=== PATIENT | female | born 1990 ===

== ENCOUNTER 2018-06-07 14:23 | Emergency (ER) | payer SELFPAY ==
[2018-06-07 14:38] VITALS: TEMP 98.3
[2018-06-07] MEDS ORDERED: Sodium Chloride 0.9% 1,000 ML IV STA (15:37)
[2018-06-07 15:44] LABS: SQUAMOUS EPITHIAL 5 /hpf (0-5); URINE BACTERIA RARE (<OCC); URINE BILIRUBIN NEGATIVE (NEGATIVE); URINE BLOOD NEGATIVE (NEGATIVE); URINE CLARITY SLIGHTY-CLOUDY (Clear); URINE COLOR YELLOW (YELLOW); URINE GLUCOSE (UA) NEG (NEGATIVE); URINE LEUKOCYTE ESTERASE NEG Leu/uL (Negative); URINE PROTEIN NEGATIVE (NEGATIVE); URINE UROBILINOGEN 0.2-1.0 mg/dL (0.2-1.0)
--- NOTE | 2018-06-07 15:44 | ED PDOC ---
HPI: General Adult Time Seen by Provider: 06/07/18 15:43 Chief Complaint (Nursing): Female Genitourinary Chief Complaint (Provider): vomiting/nausea History Per: Patient (28 y/o female concerned for here with N/V 2 weeks associated today with mild sharp intermittent lower abdominal pain. Notes mild dysuria as well. Denies any fevers/chills.) Past Medical History Reviewed: Historical Data, Nursing Documentation, Vital Signs Vital Signs: Last Vital Signs Temp 98.3 F 06/07/18 14:36 Pulse 107 H 06/07/18 14:36 Resp 20 06/07/18 14:36 BP 107/80 06/07/18 14:36 Pulse Ox 99 06/07/18 14:36 - Family History Family History: States: Unknown Family Hx - Immunization History Hx Tetanus Toxoid Vaccination: No Hx Influenza Vaccination: No Hx Pneumococcal Vaccination: No - Home Medications Home Medications: Ambulatory Orders Medication Instructions Recorded Ondansetron [Zofran Odt] 4 mg PO Q8 PRN #10 odt 11/08/16 Pantoprazole [Protonix EC Tab] 20 mg PO DAILY #30 ect 11/08/16 Ondansetron [Ondansetron Odt] 4 mg PO Q8 PRN #10 tab.rapdis 06/07/18 Multivit/Folic Acid/I 1 tab PO DAILY #30 tab 06/07/18 [ Plus] - Allergies Allergies/Adverse Reactions: Allergies Allergy/AdvReac Type Severity Reaction Status Date / Time No Known Allergies Allergy Verified 06/07/18 14:31 Review of Systems ROS Statement: Except As Marked, All Systems Reviewed And Found Negative Physical Exam - Reviewed Nursing Documentation Reviewed: Yes Vital Signs Reviewed: Yes - Physical Exam Appears: Positive for: Well, Non-toxic, No Acute Distress Head Exam: Positive for: ATRAUMATIC, NORMAL INSPECTION, NORMOCEPHALIC Skin: Positive for: Normal Color, Warm, DRY Eye Exam: Positive for: EOMI, Normal appearance, PERRL ENT: Positive for: Normal ENT Inspection Neck: Positive for: Normal, Painless ROM Cardiovascular/Chest: Positive for: Regular Rate, Rhythm Respiratory: Positive for: CNT, Normal Breath Sounds Gastrointestinal/Abdominal: Positive for: Normal Exam, Soft Back: Positive for: Normal Inspection Extremity: Positive for: Normal ROM Neurological/Psych: Positive for: Awake, Alert, Normal Tone - Laboratory Results Result Diagrams: 06/07/18 16:00 06/07/18 16:00 - ECG O2 Sat by Pulse Oximetry: 99 Medical Decision Making Medical Decision Makin:59 Transvaginal US FINDINGS: UTERUS: Single Live intrauterine gestation. CRL measures 0.9 cm equivalent to 6 weeks and 6 days of gestational age. Gestational sac diameter measures 2.1 cm equivalent to 6 weeks and 4 days of gestational age. age (Ultrasound estimated): 6 weeks and 5 days Date of delivery (Ultrasound estimated) : 01/26/2019 Heart rate: 133 bpm. Jayda-gestational hemorrhage: None. Uterus measures 9.1 x 4.5 x 5.7 cm. No mass CERVIX: Long and closed. No cervical abnormality seen. RIGHT OVARY: Measures 3.5 x 1.8 x 1.8 cm. No mass. Normal flow. LEFT OVARY: Measures 3.4 x 2.1 x 2.8 cm. No mass. Normal flow. There is a 2.1 x 1.7 x 1.3 cm corpus luteum cyst. FREE FLUID: There is trace free fluid in the cul de sac of uncertain etiology and clinical significance. OTHER FINDINGS: None. IMPRESSION: Single live intrauterine gestation with mean gestational age of 6 weeks and 5 days. The estimated date of delivery by ultrasound is 01/26/2019. There is a discrepancy with the clinical dates. Clinical follow-up is advised. Small amount of free fluid in the cul de sac is of uncertain etiology and significance. Disposition - Clinical Impression Clinical Impression: Hyperemesis gravidarum - Patient ED Disposition Is Patient to be Admitted: No - Disposition [facility] Disposition: Routine/Home Disposition Time: 18:31 Condition: FAIR Prescriptions: Ondansetron [Ondansetron Odt] 4 mg PO Q8 PRN #10 tab.rapdis PRN Reason: Nausea/Vomiting Multivit/Folic Acid/I [ Plus] 1 tab PO DAILY #30 tab Instructions: Nausea and Vomiting of (DC) Print Language: YI
[2018-06-07 16:11] LABS: BASO % 0.5 % (0.0-2.0); EOS # 0.1 K/uL (0.0-0.7); HEMOGLOBIN 12.8 g/dL (12.0-16.0); LYMPH # 1.3 K/uL (1.0-4.3); LYMPH % 20.6 % (20.0-40.0); MEAN CELL VOLUME 88.3 fl (81.0-99.0); MEAN CORPUSCULAR HEMOGLOBIN 30.6 pg (27.0-31.0); MEAN CORPUSCULAR HGB CONC 34.6 g/dL (33.0-37.0); MEAN PLATELET VOLUME 7.2 fl (7.2-11.7); MONO # 0.7 K/uL (0.0-0.8); MONO % 12.1 % (0.0-10.0); NEUT % 65.8 % (50.0-75.0); RBC 4.2 Mil/uL (3.80-5.20); RED CELL DISTRIBUTION WIDTH 12.5 % (11.5-14.5); WHITE BLOOD COUNT 6.1 K/uL (4.8-10.8)
[2018-06-07 16:21] LABS: ALB/GLOB RATIO 1.4 (1.0-2.1); ALT/SGPT 27 U/L (9-52); AST/SGOT 24 U/L (14-36); BLOOD UREA NITROGEN 8 mg/dl (7-17); CALCIUM 9.5 mg/dL (8.4-10.2); GFR NON-AFRICAN AMERICAN > 60
--- NOTE | 2018-06-07 18:03 | US ---
Date of service: 06/07/2018 PROCEDURE: OB Pelvic Ultrasound HISTORY: abd pain in COMPARISON: None available. FINDINGS: UTERUS: Single Live intrauterine gestation. CRL measures 0.9 cm equivalent to 6 weeks and 6 days of gestational age. Gestational sac diameter measures 2.1 cm equivalent to 6 weeks and 4 days of gestational age. age (Ultrasound estimated): 6 weeks and 5 days Date of delivery (Ultrasound estimated) : 01/26/2019 Heart rate: 133 bpm. Jayda-gestational hemorrhage: None. Uterus measures 9.1 x 4.5 x 5.7 cm. No mass CERVIX: Long and closed. No cervical abnormality seen. RIGHT OVARY: Measures 3.5 x 1.8 x 1.8 cm. No mass. Normal flow. LEFT OVARY: Measures 3.4 x 2.1 x 2.8 cm. No mass. Normal flow. There is a 2.1 x 1.7 x 1.3 cm corpus luteum cyst. FREE FLUID: There is trace free fluid in the cul de sac of uncertain etiology and clinical significance. OTHER FINDINGS: None. IMPRESSION: Single live intrauterine gestation with mean gestational age of 6 weeks and 5 days. The estimated date of delivery by ultrasound is 01/26/2019. There is a discrepancy with the clinical dates. Clinical follow-up is advised. Small amount of free fluid in the cul de sac is of uncertain etiology and significance.
[2018-06-07 18:55] VITALS: BP 110/70; PULSE 77; RESP 16
[2018-06-07 18:58] VITALS: O2SAT 100
== END 2018-06-07 18:50 | disposition home or self-care (01) ==
LOC: H.ER 14:23
DX: O21.0 Mild hyperemesis gravidarum (principal); Z3A.01 Less than 8 weeks gestation of pregnancy
CPT/HCPCS: 76817; 80053; 81003; 81025; 84702; 85025; 87086; 96374; 99283; J2765; J7030

== ENCOUNTER 2018-07-12 14:07 | Emergency (ER) | payer SELFPAY ==
[2018-07-12 14:25] VITALS: TEMP 98.4
[2018-07-12] MEDS ORDERED: Sodium Chloride 0.9% 1,000 ML IV STA (15:17)
[2018-07-12 15:53] LABS: BASO % 0.3 % (0.0-2.0); EOS % 0.6 % (0.0-4.0); HEMOGLOBIN 12.9 g/dL (12.0-16.0); LYMPH # 1.3 K/uL (1.0-4.3); MEAN CELL VOLUME 86.7 fl (81.0-99.0); MEAN CORPUSCULAR HEMOGLOBIN 30.3 pg (27.0-31.0); MEAN PLATELET VOLUME 7.5 fl (7.2-11.7); MONO # 0.3 K/uL (0.0-0.8); MONO % 5.4 % (0.0-10.0); NEUT # 4.8 K/uL (1.8-7.0); NEUT % 73.7 % (50.0-75.0); NRBC % 0.1 % (0.0-0.0); RBC 4.25 Mil/uL (3.80-5.20); RED CELL DISTRIBUTION WIDTH 12.9 % (11.5-14.5); WHITE BLOOD COUNT 6.5 K/uL (4.8-10.8)
[2018-07-12 16:09] LABS: BLOOD UREA NITROGEN 8 mg/dl (7-17); CALCIUM 9.1 mg/dL (8.4-10.2); GFR NON-AFRICAN AMERICAN > 60
[2018-07-12] MEDS ORDERED: Potassium CL 10 MEQ/50 ML 50 ML IVPB STA (17:41)
[2018-07-12] MEDS ORDERED: Potassium Chloride 20 mEq ER Tab PO ONE ×2 (17:44→19:19)
--- NOTE | 2018-07-12 18:30 | ED PDOC ---
HPI:Nausea, Vomiting, Diarrhea Time Seen by Provider: 07/12/18 14:31 Chief Complaint (Nursing): GI Problem Chief Complaint (Provider): nausea/vomiting Additional Complaint(s): 28 y/o F currently 12 weeks with no significant PMH who presents with persistent N/V, headache. Pt states that she has had severe nausea and has only been able to eat a small amount of oatmeal once per day. She cannot tolerate fluids and vomits every time she drinks anything, up to 8 times per day. She has been feeling weak and slightly lightheaded and had a syncopal episode this morning but was caught prior to falling to the ground. Denies head trauma. Was treated recently for UTI but was found to not have one on urine culture. Denies dysuria, abdominal pain or cramping, vaginal bleeding or abnormal vaginal discharge. Past Medical History Reviewed: Historical Data, Nursing Documentation, Vital Signs Vital Signs: Last Vital Signs Temp 98.4 F 07/12/18 14:23 Pulse 119 H 07/12/18 14:23 Resp 18 07/12/18 14:23 BP 91/69 L 07/12/18 14:23 Pulse Ox 97 07/12/18 14:23 - Medical History PMH: No Chronic Diseases - Family History Family History: States: Unknown Family Hx - Immunization History Hx Tetanus Toxoid Vaccination: No Hx Influenza Vaccination: No Hx Pneumococcal Vaccination: No - Home Medications Home Medications: Ambulatory Orders Medication Instructions Recorded Ondansetron [Zofran Odt] 4 mg PO Q8 PRN #10 odt 11/08/16 Pantoprazole [Protonix EC Tab] 20 mg PO DAILY #30 ect 11/08/16 Ondansetron [Ondansetron Odt] 4 mg PO Q8 PRN #10 tab.rapdis 06/07/18 Multivit/Folic Acid/I 1 tab PO DAILY #30 tab 06/07/18 [ Plus] - Allergies Allergies/Adverse Reactions: Allergies Allergy/AdvReac Type Severity Reaction Status Date / Time No Known Allergies Allergy Verified 06/07/18 14:31 Review of Systems Constitutional: Negative for: Fever, Chills Cardiovascular: Negative for: Chest Pain Respiratory: Negative for: Cough, Shortness of Breath Gastrointestinal: Positive for: Nausea, Vomiting. Negative for: Abdominal Pain, Diarrhea Genitourinary Female: Negative for: Dysuria, Vaginal Discharge, Vaginal Bleeding Neurological: Positive for: Weakness, Headache, Dizziness Physical Exam - Reviewed Nursing Documentation Reviewed: Yes Vital Signs Reviewed: Yes - Physical Exam Appears: Positive for: Uncomfortable Head Exam: Positive for: ATRAUMATIC Skin: Positive for: Normal Color Eye Exam: Positive for: Normal appearance, EOMI Cardiovascular/Chest: Positive for: Regular Rate, Rhythm Respiratory: Positive for: Normal Breath Sounds Gastrointestinal/Abdominal: Positive for: Normal Exam Lymphatic: Positive for: Normal Exam Neurological/Psych: Positive for: Awake, Alert, Symmetric/Intact Strength (equal in B/L upper and lower extremities), Oriented. Negative for: Facial Droop - Laboratory Results Result Diagrams: 07/12/18 14:45 07/12/18 14:45 - ECG O2 Sat by Pulse Oximetry: 97 Medical Decision Making Medical Decision Making: NS 1L IV x 1 Zofran 4mg IV x 1 Tylenol 650mg PO x 1 CBC, BMP U/A, urine culture U/A: WBCs 7K, LE trace, Nitrate negative, urine ketones 80, cloudy. K = 2.7, Potassium chloride 20meq IV x 1 ordered and 20meq PO x 1. 19:30: re-evaluated: pt feels a little better, nausea has improved but persists. Patient to have PO challenge. 20:30: patient endorsed to KATHIE Vaughan pending re-evaluation after PO challenge. Disposition - Clinical Impression Clinical Impression: Hyperemesis gravidarum before end of 22 week gestation with electrolyte i mbalance - Patient ED Disposition Is Patient to be Admitted: Transfer of Care (KATHIE Vaughan) Counseled Patient/Family Regarding: Studies Performed, Diagnosis - Disposition Disposition: Transfer of Care Disposition Time: 20:30 Condition: STABLE Forms: [employer] (Belarusian)
[2018-07-12] MEDS ORDERED: Potassium CL 10 MEQ/50 ML 50 ML ONE (19:20)
[2018-07-12 20:17] LABS: SQUAMOUS EPITHIAL 21 /hpf (0-5); URINE BACTERIA RARE (<OCC); URINE BILIRUBIN NEGATIVE (NEGATIVE); URINE BLOOD NEGATIVE (NEGATIVE); URINE CLARITY CLOUDY (Clear); URINE COLOR AMBER (YELLOW); URINE GLUCOSE (UA) 50 mg/dL (NEGATIVE); URINE LEUKOCYTE ESTERASE TRACE Leu/uL (Negative); URINE PROTEIN 30 mg/dL (NEGATIVE); URINE UROBILINOGEN 0.2-1.0 mg/dL (0.2-1.0)
[2018-07-12 21:42] VITALS: RESP 17
--- NOTE | 2018-07-12 22:06 | ED PDOC ---
- Laboratory Results Result Diagrams: 07/12/18 14:45 07/12/18 14:45 Lab Results: Urine Color Kely (YELLOW) 07/12/18 20:04 Urine Clarity Cloudy (Clear) 07/12/18 20:04 Urine pH 6.0 (5.0-8.0) 07/12/18 20:04 Ur Specific [place] 1.031 (1.003-1.030) H 07/12/18 20:04 Urine Protein 30 mg/dL (NEGATIVE) 07/12/18 20:04 Urine Glucose (UA) 50 mg/dL (NEGATIVE) 07/12/18 20:04 Urine Ketones 80 mg/dL (NEGATIVE) 07/12/18 20:04 Urine Blood Negative (NEGATIVE) 07/12/18 20:04 Urine Nitrate Negative (NEGATIVE) 07/12/18 20:04 Urine Bilirubin Negative (NEGATIVE) 07/12/18 20:04 Urine Urobilinogen 0.2-1.0 mg/dL (0.2-1.0) 07/12/18 20:04 Ur Leukocyte Esterase Trace Sebastien/uL (Negative) 07/12/18 20:04 Urine RBC (Auto) 2 /hpf (0-3) 07/12/18 20:04 Urine Microscopic WBC 7 /hpf (0-5) H 07/12/18 20:04 Ur Squamous Epith Cells 21 /hpf (0-5) H 07/12/18 20:04 Urine Bacteria Rare (<OCC) 07/12/18 20:04 - ECG O2 Sat by Pulse Oximetry: 97 - Progress ED Course And Treament: Case endorsed to television script writer from [place] [facility] pending re-eval and PO challenge ([facility]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 States she is feeling better. Vitals stable Patient educated on findings, discharged with rx Jimmy Lucero Advised increase fluid intake. Follow up Staff Development Coordinator within 2-3 days Return precautions given Disposition - Clinical Impression Clinical Impression: Hyperemesis gravidarum before end of 22 week gestation with electrolyte imbalance, UTI (urinary tract infection) - POA Present On Arrival: None - Disposition Disposition: Routine/Home Disposition Time: 22:07 Condition: IMPROVED Prescriptions: Doxylamine/Pyridoxine HCl (B6) [Nic Hancock 10-10 mg Tablet] 1 - 2 each PO HS #16 tablet. Nitrofurantoin Macrocrystals [Macrobid] 100 mg PO BID #10 cap Instructions: Urinary Tract Infections in Adults, Hyperemesis Gravidarum Print Language: MONTSERRATIAN
[2018-07-12 22:30] VITALS: BP 106/63
[2018-07-13 02:56] VITALS: PULSE 78; O2SAT 100
== END 2018-07-12 22:52 | disposition home or self-care (01) ==
LOC: H.ER 14:07
DX: O21.0 Mild hyperemesis gravidarum (principal); O23.42 Unspecified infection of urinary tract in pregnancy, second trimester; Z3A.22 22 weeks gestation of pregnancy; O99.89 Other specified diseases and conditions complicating pregnancy, childbirth and the puerperium; O26.892 Other specified pregnancy related conditions, second trimester
CPT/HCPCS: 80048; 81003; 81025; 85025; 87086; 96374; 96375; 99284; J2405; J2765; J3480; J7030